=== PATIENT | female | born 1945 | race Caucasian/White ===

== ENCOUNTER 2022-02-03 13:30 | Inpatient (IN) | payer MEDICARE ==
[2022-02-03 13:00] LABS: Hemoglobin 15.2 g/dL (12.0-15.5); Mean Corpuscular HGB CONC 34.1 g/dL (32.0-36.0); Mean Platelet Volume 9.8 fl (7.4-10.4); Platelet Count 209 10x3/uL (150-450); RBC Distribution Width 12.2 % (11.5-14.5); White Blood Cell (WBC) Count 6.7 10x3/uL (3.5-10.5)
[2022-02-03 13:05] LABS: INR-International Normal Ratio 0.9; PTT 31.9 sec (22.0-33.0); Prothrombin Time 10.4 sec (9.5-12.1)
[2022-02-03 13:11] LABS: Anion Gap 12 mmol/L (10-20); BUN (Urea Nitrogen) 17 mg/dL (9.8-20.1); Calc. Creatinine Clearance 0 mL/min (70-130); Calcium 9.9 mg/dL (7.8-10.44); Carbon Dioxide 30 mmol/L (23-31); Chloride 103 mmol/L (98-107); Glucose 101 mg/dL (83-110); Potassium 3.9 mmol/L (3.5-5.1); Sodium 141 mmol/L (136-145)
[2022-02-03 15:28] VITALS: BMI 36.9
[2022-02-03 23:25] LABS: SARS-CoV-2 PCR by NAA Not Detected (NotDetected)
[2022-02-08] MEDS ORDERED: Famotidine/PF 20 mg/2ml Vial ONE (06:16)
[2022-02-08] MEDS ORDERED: Lidocaine 1% MPF 2 ML VIAL ONE (06:16)
[2022-02-08] MEDS ORDERED: Phenylephrine 40 MG/NS 250 ML 250 ML ONE (06:24)
[2022-02-08] MEDS ORDERED: Propofol 1,000 MG/100 ML VIAL IV ONE (06:25)
[2022-02-08] MEDS ORDERED: Midazolam HCl 2 mg/2 ml Vial ONE (06:42)
[2022-02-08] MEDS ORDERED: Lidocaine 1% PF 5 ML VIAL ONE (06:42)
[2022-02-08] MEDS ORDERED: PHENYLEPHRINE-NS 100 MCG/ML 10 ML SYRINGE ONE (06:42)
[2022-02-08] MEDS ORDERED: PROPOFOL 20 ML ONE (06:42)
[2022-02-08] MEDS ORDERED: Fentanyl 250 MCG/5 ML VIAL ONE (06:42)
[2022-02-08] MEDS ORDERED: Rocuronium Bromide 10 MG/ML (10ML VIAL) ONE (06:42)
[2022-02-08] MEDS ORDERED: Ondansetron PF 4 MG/2 ML Vial ONE (06:42)
[2022-02-08] MEDS ORDERED: ePHEDrine Sulfate 50 MG/10 ML VIAL ONE (06:42)
[2022-02-08] MEDS ORDERED: Dexamethasone 20 MG/5 ML VIAL ONE (06:42)
[2022-02-08] MEDS ORDERED: Bupivacaine 0.25% HCL 30 ML VIAL ONE (06:46)
[2022-02-08] MEDS ORDERED: EPINEPHrine 1 MG/ML AMP ONE (06:46)
[2022-02-08] MEDS ORDERED: ceFAZolin 2 GM/Dextrose 50 ML IVPB ONE (07:18)
[2022-02-08] MEDS ORDERED: Ondansetron PF 4 MG/2 ML Vial SLOW IVP PRN (10:44)
[2022-02-08] MEDS ORDERED: Fentanyl 100 MCG/2 ML VIAL ONE ×2 (11:20→12:14)
[2022-02-08] MEDS ORDERED: Acetaminophen 325 MG TAB PO PRN (15:58)
[2022-02-08] MEDS ORDERED: Morphine 4 MG/ML VIAL SLOW IVP PRN (15:59)
[2022-02-08] MEDS: ceFAZolin 2 GM/Dextrose 50 ML 2 GM in Premix Bag 1 BAG IVPB SCH ×2 (16:38→23:48)
[2022-02-08] MEDS: HYDROcodone/Acetaminophen 10/325 mg Tablet PO PRN (16:38)
[2022-02-08] MEDS: guaiFENesin ER 600 MG TAB PO SCH (20:29)
[2022-02-08] MEDS: Carvedilol 6.25 MG TAB PO SCH (20:29)
[2022-02-08] MEDS: Aspirin 81 mg Enteric Coated Tablet PO SCH (20:30)
[2022-02-09] MEDS: HYDROcodone/Acetaminophen 10/325 mg Tablet PO PRN
[2022-02-09 06:34] VITALS: TEMP 97.7
[2022-02-09] MEDS: ceFAZolin 2 GM/Dextrose 50 ML 2 GM in Premix Bag 1 BAG IVPB SCH (06:59)
[2022-02-09 07:55] VITALS: BP 139/63
[2022-02-09] MEDS ORDERED: Cholecalciferol 1,000 UNITS (25 MCG) TAB PO SCH (09:00)
[2022-02-09] MEDS ORDERED: Multivit, Therapeutic 1 TAB PO SCH (09:00)
[2022-02-09] MEDS ORDERED: Triamterene/Hydrochlorothiazide TAB PO SCH (09:00)
[2022-02-09] MEDS ORDERED: Fish Oil 1,000 MG CAP PO SCH (09:00)
[2022-02-09] MEDS ORDERED: Aspirin Chewable 81 MG TAB PO SCH (09:00)
[2022-02-09] MEDS: guaiFENesin ER 600 MG TAB PO SCH (09:57)
[2022-02-09] MEDS: Aspirin 81 mg Enteric Coated Tablet PO SCH (09:57)
[2022-02-09] MEDS: Carvedilol 6.25 MG TAB PO SCH (09:57)
== END 2022-02-09 14:07 | disposition home or self-care (01) | DRG 455 ==
LOC: CSHERHOLD 02-08 05:24 → CSHTELE 02-08 14:47
PROVIDERS: ADMIT Orthopaedic Surgery; ATTEND Orthopaedic Surgery
PROC: 0SG00AJ Fusion of Lumbar Vertebral Joint with Interbody Fusion Device, Posterior Approach, Anterior Column, Open Approach (ICD-10-PCS; principal; 2022-02-08)
PROC: 0SG0071 Fusion of Lumbar Vertebral Joint with Autologous Tissue Substitute, Posterior Approach, Posterior Column, Open Approach (ICD-10-PCS; 2022-02-08)
PROC: 4A11X4G Monitoring of Peripheral Nervous Electrical Activity, Intraoperative, External Approach (ICD-10-PCS; 2022-02-08)
DX: M47.26 Other spondylosis with radiculopathy, lumbar region (principal); Z20.822 Contact with and (suspected) exposure to COVID-19; I48.0 Paroxysmal atrial fibrillation; G89.29 Other chronic pain; I25.10 Atherosclerotic heart disease of native coronary artery without angina pectoris; E78.5 Hyperlipidemia, unspecified; I12.9 Hypertensive chronic kidney disease with stage 1 through stage 4 chronic kidney disease, or unspecified chronic kidney disease; N18.9 Chronic kidney disease, unspecified; I34.0 Nonrheumatic mitral (valve) insufficiency; M41.86 Other forms of scoliosis, lumbar region; M43.16 Spondylolisthesis, lumbar region; M51.16 Intervertebral disc disorders with radiculopathy, lumbar region; I44.7 Left bundle-branch block, unspecified; Z79.899 Other long term (current) drug therapy; Z90.49 Acquired absence of other specified parts of digestive tract; Z90.710 Acquired absence of both cervix and uterus; Z90.89 Acquired absence of other organs; Z83.3 Family history of diabetes mellitus; Z88.8 Allergy status to other drugs, medicaments and biological substances; Z79.82 Long term (current) use of aspirin; Z79.02 Long term (current) use of antithrombotics/antiplatelets
CPT/HCPCS: 36416; 72110; 80048; 85027; 85610; 85730; 86850; 86900; 86901; 94760; C1713; C1889; J0171; J0690; J1100; J2250; J2405; J2704; J3010; S0020; S0028; U0003; U0005

== ENCOUNTER 2025-10-29 08:50 | Outpatient (CLI) | payer MEDICARE | END 2025-10-29 08:51 | disposition home or self-care (01) | LOC: CSHMAMMO 08:50 | PROVIDERS: ATTEND Nurse Practitioner Family | DX: Z53.9 Procedure and treatment not carried out, unspecified reason (principal) | CPT/HCPCS: 77065; G0279 ==